=== PATIENT | male | born 1995 | race Caucasian/White ===

== ENCOUNTER 2017-04-09 14:34 | Emergency (ER) | payer OTHER ==
[2017-04-09 14:38] VITALS: BP 123/63; PULSE 105; TEMP 99.3; BMI 26.6
--- NOTE | 2017-04-09 14:38 | PDOC ---
Rapid Medical Evaluation Chief Complaint: Vomiting/Diarrhea Time Seen by Provider: 04/09/17 14:36 Medical Evaluation: Allergies Allergy/AdvReac Type Severity Reaction Status Date / Time No Known Allergies Allergy Verified 04/09/17 14:36 04/09/17 14:37 Pt presents to the ED: n/v/d/ with upper abd pain Pt on brief exam: vss, Pt ordered for: cbc, comp, lipase, ua, iv, ivf, iv zofran, pepcid Pt to proceed to the Emergency Dept Discharge Disposition - Diagnosis Nausea & vomiting - Referrals - Patient Instructions - Post Discharge Activity
[2017-04-09] MEDS ORDERED: ONDANSETRON 4 MG/2 ML VIAL IVPUSH ONE (14:39)
[2017-04-09] MEDS ORDERED: SODIUM CHLORIDE 1,000 ML IV STA (14:39)
[2017-04-09] MEDS ORDERED: FAMOTIDINE 20 MG/50 ML IVPB 20 MG in PREMIX 50 IVPB ONE (14:39)
[2017-04-09 15:04] LABS: BASO # 0.1 # (0.1-1); BASO % 0.7 % (0-2.0); EOS # 0.2 # (0-4.5); EOS % 1.8 % (0-4.5); LYMPH # 0.7 (8-40); MCH 28.8 pg (25.7-33.7); MCHC 33.1 g/dl (32.0-35.9); MEAN CELL VOLUME 87.1 fl (80-96); MEAN PLT VOLUME 8.3 fl (7.5-11.1); MONO # 0.5 # (3.8-10.2); NEUT # 12.1 # (42.8-82.8); NEUT % 88.7 % (42.8-82.8); PLATELET COUNT 241 K/MM3 (134-434); RDW 12.9 % (11.9-15.9); WHITE BLOOD COUNT 13.6 K/mm3 (4.0-10.0)
[2017-04-09 15:35] LABS: ALBUMIN 4.5 g/dl (3.4-5.0); ANION GAP 10 (8-16); BILIRUBIN,TOTAL 0.9 mg/dL (0.2-1.0); CALCIUM 9.7 mg/dL (8.5-10.1); CO2 26 mmol/L (21-32); CREATININE 0.9 mg/dL (0.7-1.3); GLUCOSE,RANDOM 98 mg/dL (74-106); SGOT/AST 20 U/L (15-37); SGPT/ALT 46 U/L (12-78); TOT PROT 8.2 g/dl (6.4-8.2)
[2017-04-09 15:36] LABS: ALK PHOS 101 U/L (45-117)
[2017-04-09 15:38] LABS: URINE APPEARANCE CLOUDY; URINE BILIRUBIN NEGATIVE (NEGATIVE); URINE BLOOD 1+ (NEGATIVE); URINE COLOR DKYELLOW; URINE GLUCOSE (UA) NEGATIVE (NEGATIVE); URINE KETONE NEGATIVE (NEGATIVE); URINE LEUK ESTERASE NEGATIVE (NEGATIVE); URINE NITRITE NEGATIVE (NEGATIVE); URINE PROTEIN NEGATIVE (NEGATIVE); URINE UROBILINOGEN NEGATIVE mg/dL (0.2-1.0)
[2017-04-09 16:01] LABS: URINE MUCUS RARE; URINE RBC 4 /hpf (0-3); URINE WBC 2 /hpf (3-5)
[2017-04-09 18:38] LABS: URINE LEUK ESTERASE Negative (NEGATIVE)
== END 2017-04-09 19:30 | disposition home or self-care (01) ==
LOC: JER 14:34
DX: Z53.21 Procedure and treatment not carried out due to patient leaving prior to being seen by health care provider (principal)
CPT/HCPCS: 36415; 80053; 81003; 81015; 83690; 85025; 87086; 99281-25